=== PATIENT | female | born 1940 ===

== ENCOUNTER 2020-12-22 12:14 | Emergency (ER) | payer OTHER, MEDICARE ==
[2020-12-22 13:09] VITALS: BP 112/57; PULSE 88; TEMP 99.1; BMI 22.3
== END 2020-12-22 14:03 | disposition home or self-care (01) ==
LOC: FER 12:14
DX: M25.521 Pain in right elbow (principal); W19.XXXA Unspecified fall, initial encounter
CPT/HCPCS: 73030-TC-RT-FY; 73060-TC-RT-FY; 73070-TC-RT-FY; 73090-TC-RT-FY; 99284-25